=== PATIENT | female | born 1980 | race Caucasian/White ===

== ENCOUNTER 2020-04-23 07:55 | Day surgery (SDC) | payer BC ==
[~2020-04-23] VITALS: Ht 172.7 cm; Wt 54.4 kg
[~2020-04-23 07:55] MED LIST: FLUO40CA7 PO; IBUP100T8 PO; LACT1CAP88 PO; SODIUM CHLORIDE 0.9% 1000ML 1,000 ML IV ONE
[2020-04-23 08:46] VITALS: BP 100/58
[2020-04-23] MEDS ORDERED: PROPOFOL 10 MG/ML 20ML VIAL IV ONE (09:47)
[2020-04-23] MEDS ORDERED: GLYCOPYRROLATE 1 MG/5 ML SYRINGE ONE (09:47)
[2020-04-23 10:05] VITALS: BP 92/39
[2020-04-23 10:20] VITALS: BP 91/48
[2020-04-23 10:35] VITALS: BP 96/56
== END 2020-04-23 10:35 | disposition home or self-care (01) ==
LOC: DAH 07:55 → ENDO 07:55
PROVIDERS: ATTEND Internal Medicine Gastroenterology
DX: R10.13 Epigastric pain (principal); K29.70 Gastritis, unspecified, without bleeding; K25.9 Gastric ulcer, unspecified as acute or chronic, without hemorrhage or perforation; R63.4 Abnormal weight loss
CPT/HCPCS: 43239; 81025; A4215; A4221; A4222; A4223; A4606; A4620; A4663; J2704; J3490; J7030